=== PATIENT | female | born 1955 | race Hispanic/Latino ===

== ENCOUNTER 2019-07-05 09:04 | Outpatient (CLI) | payer MEDICARE | END 2019-07-05 09:05 | disposition home or self-care (01) | LOC: DTY/OP 09:04 | PROVIDERS: ATTEND Family Medicine | DX: R63.6 Underweight (principal) | CPT/HCPCS: 97802 ==

== ENCOUNTER 2019-07-19 13:32 | Outpatient (CLI) | payer MEDICARE ==
--- NOTE | 2019-07-19 14:00 | BD ---
BONE DENSITOMETRY USING DEXA: Date: 07/19/19 HISTORY: 64-year-old female with age-related osteoporosis without current pathologic fracture. Postmenopausal screening for osteoporosis. FINDINGS: Lumbar Spine: BMD (g/cm2) L1 0.690 T-Score: -2.7 Z-Score: -1.1 L2 0.837 T-Score: -1.7 Z-Score: 0.0 L3 0.846 T-Score: -2.2 Z-Score: -0.3 L4 0.804 T-Score: -2.3 Z-Score: -0.4 L1-L4 0.794 T-Score: -2.3 Z-Score: -0.5 Femoral Neck: 0.541 T-Score: -2.8 Z-Score: -1.4 Total Femur: 0.791 T-Score: -1.2 Z-Score: -0.2 There has been interval improvement of 10% in the bone mineral density of the lumbar spine and a redu ction of 2.3% in the bone mineral density of the proximal femur since 06/21/17. IMPRESSION: Osteoporosis. POS: [facility]
== END 2019-07-19 13:33 | disposition home or self-care (01) ==
LOC: BICMAMMO 13:32
PROVIDERS: ATTEND Family Medicine
DX: M81.0 Age-related osteoporosis without current pathological fracture (principal)
CPT/HCPCS: 77080

== ENCOUNTER 2020-08-11 08:09 | Outpatient (CLI) | payer MEDICARE | END 2020-08-11 08:10 | disposition home or self-care (01) | PROVIDERS: ATTEND Student in an Organized Health Care Education/Training Program | DX: Z02.79 Encounter for issue of other medical certificate (principal) ==

== ENCOUNTER 2021-11-30 15:13 | Outpatient (CLI) | payer BC | END 2021-11-30 15:14 | disposition home or self-care (01) | LOC: SCSMRI 15:13 | PROVIDERS: ATTEND Specialist | DX: M51.16 Intervertebral disc disorders with radiculopathy, lumbar region (principal); M47.26 Other spondylosis with radiculopathy, lumbar region; M47.27 Other spondylosis with radiculopathy, lumbosacral region; M41.9 Scoliosis, unspecified | CPT/HCPCS: 72148 ==